=== PATIENT | female | born 1950 | race Caucasian/White ===

== ENCOUNTER 2021-09-11 05:34 | Inpatient (IN) | payer MEDICARE ==
[2021-08-25 15:19] LABS: BASOPHILS % (AUTO) 0.5 % (0-1); EOSINOPHILS % (AUTO) 0.2 % (0-6); LYMPHOCYTES # (AUTO) 1.2 X10'3 (1.1-4.8); LYMPHOCYTES % (AUTO) 26.8 % (21-51); MEAN CORPUSCULAR HEMOGLOBIN 28.6 PG (27.0-31.0); MEAN CORPUSCULAR HGB CONC 34.2 g/dL (33.0-36.5); MEAN CORPUSCULAR VOLUME 83.5 FL (78-98); MEAN PLATELET VOLUME 8.2 FL (7.4-10.4); MONOCYTES # (AUTO) 0.6 X10'3 (0-0.9); NEUTROPHILS # (AUTO) 2.6 X10'3 (1.8-7.7); NEUTROPHILS % (AUTO) 59.5 % (42-75); PRE OP HEMATOCRIT 43.6 % (35.0-45.0); PRE OP HEMOGLOBIN 14.9 g/dL (12.0-16.0); PRE OP PLATELET COUNT 219 X10'3 (140-440); RED BLOOD COUNT 5.23 X10'6 (4.20-5.60); RED CELL DISTRIBUTION WIDTH 13.2 % (11.5-14.5)
[2021-08-25 15:33] LABS: ALBUMIN 3.5 G/DL (3.4-5.0); ALBUMIN/GLOBULIN RATIO 0.9 (1.1-1.5); ALKALINE PHOSPHATASE 81 IU/L (46-116); BLOOD UREA NITROGEN 17 MG/DL (7-18); BUN/CREATININE RATIO 16.2 (6.6-38.0); CHLORIDE 104 MMOL/L (99-107); CREATININE 1.05 MG/DL (0.40-0.90); PRE OP ALT 42 U/L (30-65); PRE OP ANION GAP 10 (8-16); PRE OP AST 30 U/L (10-37); PRE OP BILIRUB, TOTAL 0.3 MG/DL (0.0-1.0); PRE OP GLUCOSE 102 MG/DL (70-104); PRE OP SODIUM 141 MMOL/L (135-145); TOTAL CARBON DIOXIDE 27.1 MMOL/L (24-32); TOTAL PROTEIN 7.6 G/DL (6.4-8.2); eGFR 52 ML/MIN
[~2021-09-11] VITALS: Ht 162.6 cm; Wt 73.0 kg
[2021-09-11] VITALS (18 sets, daily range): BP systolic 91–135; BP diastolic 42–103
[~2021-09-11 05:34] MED LIST: ACET-1025 PO; ATOR10TA70 PO; BENA40TA90 PO; BUPR300T53 PO; DULO60CA65 PO; EST1T PO; FLUT16SP11 BOTHNARES; IBUP-1986 PO; OXYB15TA19 PO; THYR120T14 PO; TRIA1CAP6 PO; cefazolin/dext.iso 2gm/50ml IV ONE; famotidine 20mg tablet PO ONE; tranexamic acid 650mg tablet PO ONE; vancomycin 1,500 MG in NS 300ml IV soln IV ONE
[2021-09-11] MEDS ORDERED: LIDOcaine 1% (10mg/ml) 2ml vial ONE (06:42)
[2021-09-11] MEDS: ringers solution, lacted 1,000 ML IV SCH ×2 (06:56→17:48)
[2021-09-11 09:55] LABS: BASOPHILS % (AUTO) 0.6 % (0-1); EOSINOPHILS # (AUTO) 0.2 X10'3 (0-0.9); EOSINOPHILS % (AUTO) 3.4 % (0-6); HEMATOCRIT 38.9 % (35.0-45.0); HEMOGLOBIN 13.2 g/dl (12.0-16.0); LYMPHOCYTES # (AUTO) 2.6 X10'3 (1.1-4.8); LYMPHOCYTES % (AUTO) 34.7 % (21-51); MEAN CORPUSCULAR HEMOGLOBIN 28.2 PG (27.0-31.0); MEAN CORPUSCULAR HGB CONC 33.9 g/dL (33.0-36.5); MEAN CORPUSCULAR VOLUME 83.4 FL (78-98); MEAN PLATELET VOLUME 8.9 FL (7.4-10.4); MONOCYTES # (AUTO) 0.6 X10'3 (0-0.9); MONOCYTES % (AUTO) 8.6 % (2-12); NEUTROPHILS # (AUTO) 3.9 X10'3 (1.8-7.7); NEUTROPHILS % (AUTO) 52.7 % (42-75); PLATELET COUNT 224 X10'3 (140-440); RED BLOOD COUNT 4.67 X10'6 (4.20-5.60); RED CELL DISTRIBUTION WIDTH 13.1 % (11.5-14.5); WHITE BLOOD COUNT 7.3 X10'3 (4.5-11.0)
[2021-09-11 10:21] LABS: ALANINE AMINOTRANSFERASE 28 U/L (12-78); ALBUMIN 3.3 G/DL (3.4-5.0); ALKALINE PHOSPHATASE 88 IU/L (46-116); ANION GAP 13 (8-16); ASPARTATE AMINO TRANSFERASE 17 U/L (10-37); BILIRUBIN,TOTAL 0.3 MG/DL (0.1-1.0); BLOOD UREA NITROGEN 23 MG/DL (7-18); BUN/CREATININE RATIO 21.7 (6.6-38.0); CALCIUM 9.1 MG/DL (8.5-10.1); CHLORIDE 109 MMOL/L (99-107); CREATININE 1.06 MG/DL (0.40-0.90); GLUCOSE 97 MG/DL (70-104); POTASSIUM 4.3 MMOL/L (3.5-5.1); SODIUM 143 MMOL/L (135-145); TOTAL CARBON DIOXIDE 21.5 MMOL/L (24-32); TOTAL PROTEIN 6.5 G/DL (6.4-8.2); eGFR 51 ML/MIN
[2021-09-11] MEDS ORDERED: ROPIVAcaine 0.5% (5mg/ml) 30ml vial ONE ×2 (11:16→14:48)
[2021-09-11] MEDS ORDERED: ketorolac trometh. 30mg/ml inj. ONE (11:16)
[2021-09-11] MEDS ORDERED: fentaNYL/PF 50MCG/1 ML 2ML syringe ONE (12:27)
[2021-09-11] MEDS ORDERED: midazolam 1 mg/ML 2ml injection ONE (12:28)
[2021-09-11] MEDS ORDERED: sevoflurane 250ml liquid IH ONE (13:51)
[2021-09-11] MEDS ORDERED: propofol inj 20 ML IV ONE (14:48)
[2021-09-11] MEDS ORDERED: LIDOcaine 2% (20mg/ml) 5ml vial ONE (14:48)
[2021-09-11] MEDS ORDERED: ondansetron/PF 4mg/2ml inj ONE (14:48)
[2021-09-11] MEDS ORDERED: dexamethasone sod phosphate 4mg/ml inj. ONE (14:48)
[2021-09-11] MEDS ORDERED: rocuronium 10mg/ml inj IV ONE (14:48)
[2021-09-11] MEDS ORDERED: LIDOcaine 1%/PF 5ML 10 MG/ML VIAL ONE (14:48)
[2021-09-11] MEDS ORDERED: ringers solution, lacted 1,000 ML IV SCH (15:25)
[2021-09-11] MEDS ORDERED: meperidine/PF 25mg/ml syringe IV PRN (15:25)
[2021-09-11] MEDS ORDERED: proCHLORperazine 10 MG/2 ml inj IV PRN (15:25)
[2021-09-11] MEDS ORDERED: morphine 2 MG/ML inj. syringe IV PRN (15:25)
[2021-09-11] MEDS ORDERED: ROPIVAcaine 0.2%/PF PUMP/bolus 545 ML INTERSCALE SCH (15:25)
[2021-09-11] MEDS ORDERED: HYDROmorphone/PF 0.2 MG/ML SYRINGE IV PRN ×2 (15:25)
[2021-09-11] MEDS ORDERED: acetaminophen 1,000mg/100ml IV 100 ML IV PRN (15:25)
[2021-09-11] MEDS ORDERED: hydrALAZINE 20mg/ml inj. IV PRN (15:25)
[2021-09-11] MEDS ORDERED: morphine 4 MG/ML inj SYRINge IV PRN (15:25)
[2021-09-11] MEDS ORDERED: labetalol 20mg/4ml (5mg/ml) syringe IV PRN (15:25)
[2021-09-11] MEDS ORDERED: ROPIVAcaine 0.2% (10 MG/5 ML) BOLUS INJECTION INTERSCALE PRN (15:25)
[2021-09-11] MEDS ORDERED: ondansetron/PF 4mg/2ml inj IV PRN ×2 (15:25→16:00)
[2021-09-11] MEDS ORDERED: 0.9 % SODIUM CHLORIDE 10 ML VIAL ONE (15:46)
[2021-09-11] MEDS ORDERED: ePHEDrine 50MG/ML INJ. ONE (15:46)
[2021-09-11] MEDS ORDERED: phenylephrine 10mg/ml inj. ONE (15:46)
[2021-09-11] MEDS ORDERED: acetaminophen 325mg tablet PO PRN (16:00)
[2021-09-11] MEDS ORDERED: fluticasone nasal spray 16GM bottle NS PRN (16:00)
[2021-09-11] MEDS ORDERED: HYDROmorphone 1 mg/ml syringe IV PRN (16:00)
[2021-09-11] MEDS ORDERED: ibuprofen tablet 400 MG TABLET PO PRN (16:00)
[2021-09-11] MEDS ORDERED: magnesium hydroxide 30ml (MOM) UD suspension PO PRN (16:00)
[2021-09-11] MEDS ORDERED: HYDROmorphone inj. 0.5 MG/0.5 ML DISP.SYRIN IV PRN (16:00)
[2021-09-11] MEDS: potassium cl 20mEq in 1/2 NS 1,000 ML IV SCH (16:00)
[2021-09-11] MEDS ORDERED: oxyCODONE IR 5mg (immed. release) tablet PO PRN ×2 (16:00)
[2021-09-11] MEDS ORDERED: non-formulary drug (Acetaminophen (Tylenol Extra Strength) 1 TAB) PO PRN (16:00)
[2021-09-11] MEDS ORDERED: diphenhydrAMINE 25mg capsule PO PRN ×2 (16:00)
[2021-09-11] MEDS: ceFAZolin/D5W- 1GM premix 50 ML IV SCH (16:00)
[2021-09-11] MEDS ORDERED: bisacodyl 10mg suppository rectal RC PRN (16:00)
--- NOTE | 2021-09-11 16:00 | NUR ---
Received from OR via HOSPITAL BED , accompanied by Anesthesiologist DR OATES and report given by Anesthesiolgist. PT PRESENTS WITH 20G OLEFT WRIST, SHOULDER BINDER WITH POWSER PACK AND ON-Q READY , DRESSING CLEAN DRY AND INTACT, VSS. Addendum: 09/11/21 at 1613 by Kaleigh Hills RN, RN Amended: Links added.
--- NOTE | 2021-09-11 17:30 | NUR ---
Received pt from recovery awake A&O family at bedside. VSS call light in reach. Discussed post op POC pt verbalizes understanding.
--- NOTE | 2021-09-11 17:30 | NUR ---
Report called to receiving nurse HELLEN MAYEN. Transferred via HOSPITAL BED TO ROOM 354B, 1 PT Belonging BAG WITH PT TO ROOM 354B. BED IN LOW LOCKED POSITION, PT GIVEN CALL LIGHT AND HOOKED UP TO VITALS MACHINE. Special Issues communicated to receiving nurse. Addendum: 09/11/21 at 1741 by Kaleigh Hills RN RN Amended: Links added.
--- NOTE | 2021-09-11 18:13 | NUR ---
Problems reprioritized. Patient report given, questions answered & plan of care reviewed with FAHEEM Purdy.
--- NOTE | 2021-09-11 18:13 | NUR ---
Patient in room [facility]. I have received report from Nany MAYEN and had the opportunity to ask questions and assume patient care.
[2021-09-11] MEDS ORDERED: VANCOMYCIN 1GM/200ML IVPB 200 ML IV SCH (20:00)
[2021-09-11] MEDS ORDERED: oxybutynin 5mg tablet PO SCH (21:00)
[2021-09-11] MEDS ORDERED: sennosides 8.6mg tablet PO SCH (21:00)
[2021-09-11] MEDS ORDERED: atorvastatin 10mg tablet PO SCH (21:00)
[2021-09-11] MEDS: estradiol 1mg tablet PO SCH (21:03)
[2021-09-11] MEDS: acetaminophen 325mg tablet PO SCH (21:04)
[2021-09-12] VITALS: BP 126/65
[2021-09-12] MEDS: ceFAZolin/D5W- 1GM premix 50 ML IV SCH (00:04)
[2021-09-12] MEDS: potassium cl 20mEq in 1/2 NS 1,000 ML IV SCH ×2 (01:10→08:00)
[2021-09-12] MEDS: acetaminophen 325mg tablet PO SCH ×2 (01:10→09:14)
[2021-09-12 04:00] VITALS: BP 112/52
--- NOTE | 2021-09-12 06:10 | NUR ---
Problems reprioritized. Patient report given, questions answered & plan of care reviewed with Brayan RN.
[2021-09-12 06:29] LABS: ANION GAP 12 (8-16); CHLORIDE 106 MMOL/L (99-107); POTASSIUM 4.6 MMOL/L (3.5-5.1); SODIUM 139 MMOL/L (135-145); TOTAL CARBON DIOXIDE 20.8 MMOL/L (24-32)
[2021-09-12 06:34] LABS: BASOPHILS % (AUTO) 0 % (0-1); EOSINOPHILS % (AUTO) 0 % (0-6); HEMATOCRIT 33.5 % (35.0-45.0); HEMOGLOBIN 11.4 g/dl (12.0-16.0); LYMPHOCYTES # (AUTO) 0.9 X10'3 (1.1-4.8); LYMPHOCYTES % (AUTO) 6.1 % (21-51); MEAN CORPUSCULAR HEMOGLOBIN 28.4 PG (27.0-31.0); MEAN CORPUSCULAR HGB CONC 34.2 g/dL (33.0-36.5); MEAN CORPUSCULAR VOLUME 83.2 FL (78-98); MEAN PLATELET VOLUME 8.8 FL (7.4-10.4); MONOCYTES # (AUTO) 0.5 X10'3 (0-0.9); MONOCYTES % (AUTO) 3.5 % (2-12); NEUTROPHILS # (AUTO) 12.8 X10'3 (1.8-7.7); NEUTROPHILS % (AUTO) 90.4 % (42-75); PLATELET COUNT 182 X10'3 (140-440); RED BLOOD COUNT 4.02 X10'6 (4.20-5.60); RED CELL DISTRIBUTION WIDTH 12.7 % (11.5-14.5); WHITE BLOOD COUNT 14.1 X10'3 (4.5-11.0)
--- NOTE | 2021-09-12 06:35 | NUR ---
Patient in room [facility]. I have received report from Rajwinder MAYEN and had the opportunity to ask questions and assume patient care.
--- NOTE | 2021-09-12 06:45 | NUR ---
Patient in room [facility]. I have received report from [facility] and had the opportunity to ask questions and assume patient care.
[2021-09-12] MEDS ORDERED: triamterene/HCTZ 37.5/25mg tablet PO SCH (08:00)
[2021-09-12] MEDS ORDERED: duloxetine 30mg CAPSULE.DR PO SCH (08:00)
[2021-09-12] MEDS ORDERED: buPROPion SR 150mg tablet PO SCH (08:00)
[2021-09-12] MEDS ORDERED: thyroid, pork 30mg tablet PO SCH (08:00)
[2021-09-12] MEDS ORDERED: lisinopril 20mg tablet PO SCH (08:00)
[2021-09-12] MEDS ORDERED: aspirin 325mg tablet PO SCH (08:30)
[2021-09-12 09:04] VITALS: BP 119/67
[2021-09-12] MEDS: estradiol 1mg tablet PO SCH (09:11)
[2021-09-12 09:16] VITALS: BP_SYST 107
[2021-09-13] MEDS ORDERED: acetaminophen 325mg tablet PO PRN (16:00)
== END 2021-09-12 12:05 | disposition home or self-care (01) | DRG 483 ==
LOC: PAS 05:34 → EDSTATUS 07:30 → SUR 3N 16:00
PROVIDERS: ADMIT Orthopaedic Surgery; ATTEND Orthopaedic Surgery
PROC: 0LS30ZZ Reposition Right Upper Arm Tendon, Open Approach (ICD-10-PCS; 2021-09-11)
PROC: 3E0T3BZ Introduction of Anesthetic Agent into Peripheral Nerves and Plexi, Percutaneous Approach (ICD-10-PCS; 2021-09-11)
PROC: 0RRJ00Z Replacement of Right Shoulder Joint with Reverse Ball and Socket Synthetic Substitute, Open Approach (ICD-10-PCS; principal; 2021-09-11 13:51)
DX: M19.011 Primary osteoarthritis, right shoulder (principal); M75.121 Complete rotator cuff tear or rupture of right shoulder, not specified as traumatic
CPT/HCPCS: 36415; 80051; 80053; 82948; 85025; 87081; 97110; 97116; 97161; 97530; A4215; A4618; A7000; C1776; G0378; J0690; J1100; J1885; J2250; J2370; J2405; J2704; J2795; J3010; J3370; J3480; J3490; J7040; J7120; U0003; U0005

== ENCOUNTER 2025-07-18 07:51 | Outpatient (CLI) | payer MEDICARE ==
[~2025-07-18] VITALS: Ht 162.6 cm; Wt 78.9 kg
[2025-07-18] VITALS (8 sets, daily range): BP systolic 118–167; BP diastolic 58–79; PULSE 78–97; RESP 16–18; O2SAT 98–100
[~2025-07-18 07:51] MED LIST changes: -TRIA1CAP6 PO; +TRIA1CAP88 PO; -cefazolin/dext.iso 2gm/50ml IV ONE; -famotidine 20mg tablet PO ONE; -tranexamic acid 650mg tablet PO ONE; -vancomycin 1,500 MG in NS 300ml IV soln IV ONE
[2025-07-18] MEDS: regadenoson 0.4mg/5ml syringe IV ONE (09:20)
--- NOTE | 2025-07-18 13:57 | RADIOLOGY REPORT ---
Reason for study/Clinical History: ABNORMAL ELECTROCARDIOGRAM [ECG] [EKG], DYSPNEA Comparison Study: None Myocardial Perfusion Study with SPECT TECHNIQUE: The patient received an intravenous injection of 7.4 mCi of technetium-99m Sestamibi while at rest. After a short delay, SPECT tomographic images of the heart were obtained. The patient then went to the stress lab where they received an intravenous Lexiscan utilizing standard protocol. 32.5 mCi of technetium-99m Sestamibi was injected intravenously immediately after the start of the infusion. Gated SPECT tomographic images of the heart were acquired and processed. FINDINGS: Rotating planar images show no significant attenuation artifact. The left ventricular size is within normal limits. Stress tomographic images demonstrate normal perfusion. Resting tomographic images demonstrate a similar pattern. Gated portion of the study shows normal wall motion and myocardial thickening. The left ventricular ejection fraction is 53%. (normal greater than 50%) IMPRESSION: Normal left ventricular size, wall motion, and function, without evidence of infarction or of myocardium at ischemic risk.The left ventricular ejection fraction is 53%.
== END 2025-07-18 23:59 | disposition home or self-care (01) ==
LOC: NM 07:51
PROVIDERS: ATTEND Internal Medicine Cardiovascular Disease
DX: Z01.818 Encounter for other preprocedural examination (principal); R94.31 Abnormal electrocardiogram [ECG] [EKG]; R06.00 Dyspnea, unspecified
CPT/HCPCS: 78452; 93017; A9500; J2785